=== PATIENT | female | born 1985 | race Caucasian/White ===

== ENCOUNTER 2018-12-04 10:00 | Emergency (ER) | payer MEDICAID ==
[~2018-12-04] VITALS: Ht 167.6 cm; Wt 61.2 kg
[2018-12-04 10:00] VITALS: BP_SYST 113
[2018-12-04] MEDS ORDERED: KETOROLAC TROMETHAMINE 60 MG/2 ML VIAL IM ONE (10:45)
[2018-12-04 12:02] VITALS: BP_SYST 110
== END 2018-12-04 12:04 | disposition home or self-care (01) ==
LOC: SED 10:00
DX: G43.709 Chronic migraine without aura, not intractable, without status migrainosus (principal)
CPT/HCPCS: 70450; 81025; 96372; 99284; J1885

== ENCOUNTER 2019-02-25 13:00 | Emergency (ER) | payer MEDICAID ==
[~2019-02-25] VITALS: Ht 167.6 cm; Wt 62.6 kg
[2019-02-25 13:03] VITALS: BP_SYST 111
[2019-02-25] MEDS ORDERED: KETOROLAC TROMETHAMINE 60 MG/2 ML VIAL IM ONE (13:45)
[2019-02-25] MEDS ORDERED: NACL 0.9% 1,000 ML IV ONE (14:00)
[2019-02-25] MEDS ORDERED: KETOROLAC TROMETHAMINE 30 MG VIAL IVP ONE (14:00)
[2019-02-25] MEDS ORDERED: ONDANSETRON HCL 4 MG/2 ML VIAL IVP ONE (14:00)
[2019-02-25 14:37] LABS: HEMATOCRIT 37.5 % (36-48); HEMOGLOBIN 12.6 g/dL (12.0-16.0); MEAN CORPUSCULAR HEMOGLOBIN 31 pg (27-31); MEAN CORPUSCULAR HGB CONC 34 % (32-36); MEAN CORPUSCULAR VOLUME 92 fL (79.0-98.0); PLATELET COUNT (AUTO) 313 K/uL (130-430); RED BLOOD CELL COUNT(AUTO) 4.06 MIL/uL (4.2-6.2); RED CELL DISTRIBUTION WIDTH 14.1 % (9.0-15.0); WHITE BLOOD COUNT (AUTO) 8.4 K/uL (4.8-10.8)
[2019-02-25 14:38] LABS: BASOPHILS % (AUTO) 0.3 % (0.0-2.0); EOSINOPHILS # (AUTO) 0.2 K/uL (0.0-0.4); EOSINOPHILS % (AUTO) 1.8 % (0.0-4.0); LYMPHOCYTES # (AUTO) 1.5 K/uL (1.0-5.5); LYMPHOCYTES % (AUTO) 18.4 % (20.5-51.5); MONOCYTES # (AUTO) 0.7 K/uL (0.0-1.0); MONOCYTES % (AUTO) 8.5 % (1.7-9.3); NEUTROPHILS # (AUTO) 5.9 K/uL (1.8-7.7)
[2019-02-25 14:39] LABS: CALCIUM 9.2 mg/dL (8.4-11.0); CREATININE 0.52 mg/dL (0.55-1.30); POTASSIUM 4.1 mmol/L (3.5-5.1)
[2019-02-25 14:47] LABS: ALBUMIN 3.9 g/dL (3.4-4.8); TOTAL BILIRUBIN 0.5 mg/dL (0.0-1.0)
[2019-02-25 17:13] VITALS: BP_SYST 128
== END 2019-02-25 17:12 | disposition home or self-care (01) ==
LOC: SED 13:00
DX: K85.90 Acute pancreatitis without necrosis or infection, unspecified (principal); J06.9 Acute upper respiratory infection, unspecified; J02.8 Acute pharyngitis due to other specified organisms; B97.89 Other viral agents as the cause of diseases classified elsewhere; R74.0 Nonspecific elevation of levels of transaminase and lactic acid dehydrogenase [LDH]; G43.909 Migraine, unspecified, not intractable, without status migrainosus; Z90.89 Acquired absence of other organs
CPT/HCPCS: 74176; 76700; 80053; 81002; 81025; 83690; 85025; 86710; 96361; 96374; 96375; 99284; J1885; J2405; J7030; 36415

== ENCOUNTER 2024-06-27 12:12 | Emergency (ER) | payer MEDICAID ==
[~2024-06-27] VITALS: Ht 170.2 cm; Wt 68.0 kg
[2024-06-27 12:21] VITALS: BP_SYST 105; PULSE 94; RESP 20; TEMP 98.7; O2SAT 100
[2024-06-27] MEDS: KETOROLAC TROMETHAMINE 30 MG VIAL IVP ONE (12:53)
[2024-06-27] MEDS: NACL 0.9% 1,000 ML IV ONE (12:53)
[2024-06-27] MEDS: ONDANSETRON HCL 4 MG/2 ML VIAL IVP ONE (12:54)
[2024-06-27] MEDS ORDERED: MORPHINE 2 MG/ML INJ. SYRINGE IVP ONE (14:00)
[2024-06-27] MEDS ORDERED: BUTA1CAP43 PO (14:28)
[2024-06-27 14:43] VITALS: BP_SYST 105; PULSE 94; RESP 20; TEMP 98.7; O2SAT 100
[2024-06-27] MEDS: FIORCET PO PRN (14:46)
== END 2024-06-27 14:38 | disposition home or self-care (01) ==
LOC: SED 12:12
DX: R51.9 Headache, unspecified (principal); R11.0 Nausea; Z79.899 Other long term (current) drug therapy
CPT/HCPCS: 99284; 96374; 96361; 96375; J1885; J2405; J7030